=== PATIENT | female | born 1955 | race Caucasian/White ===

== ENCOUNTER 2016-10-23 01:55 | Emergency (ER) | payer MEDICAID ==
[~2016-10-23] VITALS: Ht 175.3 cm; Wt 90.7 kg
[2016-10-23 04:57] LABS: Basophils # (auto) 0.1 uL; Basophils % (auto) 0.7 % (0.0-2.0); Eosinophils # (auto) 0.2 uL; Eosinophils % (auto) 1.5 % (0.0-7.0); Hematocrit 41.5 % (36.0-46.0); Hemoglobin 13.7 g/dL (12.2-16.2); Lymphocytes # (auto) 3.3 uL; Lymphocytes % (auto) 30.9 % (10.0-50.0); Mean Corpuscular Hemoglobin 29.1 pg (28.0-32.0); Mean Corpuscular Volume 88.2 fL (80.0-100.0); Mean Platelet Volume 8.2 fL (7.4-10.4); Monocytes # (auto) 1.1 uL; Monocytes % (auto) 10.7 % (0.0-12.0); Neutrophils % (auto) 56.2 % (37.0-80.0); Platelet Count (auto) 513 10^3/uL (140-450); White Blood Cell 10.8 10^3/uL (4.4-10.8)
[2016-10-23 05:17] LABS: BUN/Creatinine Ratio 22.6; Bilirubin, Total 0.4 mg/dL (0.2-1.0); Calcium 9.5 mg/dL (8.5-10.1); Potassium 3.6 mmol/L (3.5-5.1); Uric Acid 8.9 mg/dL (2.6-6.0)
[2016-10-23 07:19] VITALS: BP 103/64
== END 2016-10-23 07:41 | disposition home or self-care (01) ==
LOC: ER 01:55
DX: M23.91 Unspecified internal derangement of right knee (principal); F17.210 Nicotine dependence, cigarettes, uncomplicated; F12.10 Cannabis abuse, uncomplicated; I10 Essential (primary) hypertension; Z88.0 Allergy status to penicillin
CPT/HCPCS: 36415; 73562; 80053; 84550; 85025; 85379; 93971

== ENCOUNTER 2017-07-03 15:22 | Inpatient (IN) | payer MEDICAID ==
[~2017-07-03] VITALS: Ht 172.7 cm; Wt 99.8 kg
[2017-07-03 15:59] LABS: Basophils # (auto) 0.1 uL; Basophils % (auto) 1.4 % (0.0-2.0); Eosinophils # (auto) 0.1 uL; Hemoglobin 12.8 g/dL (12.2-16.2); Lymphocytes # (auto) 1.3 uL; Mean Corpuscular Hgb Conc. 32.7 g/dL (32.0-36.0)
[2017-07-03 16:01] LABS: Lymphocytes % (auto) 13.3 % (10.0-50.0); Mean Corpuscular Hemoglobin 28.9 pg (28.0-32.0); Mean Corpuscular Volume 88.3 fL (80.0-100.0); Monocytes % (auto) 10.3 % (0.0-12.0); Neutrophils # (auto) 7.5 uL; Nucleated Red Blood Cells % 0.1 %; Platelet Count (auto) 461 10^3/uL (140-450); Red Blood Cells 4.42 10^6/uL (4.0-5.20); Red Cell Distribution Width 14.2 % (11.8-14.3); White Blood Cell 10.1 10^3/uL (4.4-10.8)
[2017-07-03 16:15] LABS: Albumin 3.5 g/dL (3.4-5.0); Calcium 9.5 mg/dL (8.5-10.1); Potassium 3.8 mmol/L (3.5-5.1)
[2017-07-03 16:18] LABS: BUN/Creatinine Ratio 16.3
[2017-07-03 16:20] LABS: Bilirubin, Total 0.4 mg/dL (0.2-1.0); Total Protein 7.3 g/dL (6.4-8.2)
[2017-07-03] MEDS ORDERED: ENOXAPARIN SOD 100 MG/1 ML SYRINGE SC ONE (17:15)
[2017-07-03] MEDS ORDERED: diphenhdrAMINE HCL 50 MG/1 ML VL IV ONE (20:00)
[2017-07-03] MEDS ORDERED: LORazepam 2MG/ML-1ML VIAL IV ONE (20:00)
[2017-07-03 21:54] LABS: Urine Bacteria FEW /hpf (None Seen); Urine Blood Negative /uL (Negative); Urine Hyaline Cast FEW /lpf (0 - 2); Urine Specific Gravity 1.013 (1.001-1.035); Urine WBC 24 /hpf (0 - 5); Urine WBC Clumps PRESENT /hpf (None Seen)
[2017-07-03 22:23] LABS: Alcohol, Urine < 3.0 mg/dL (0-5); Amphetamine Screen, Urine POSITIVE (NEGATIVE); Barbiturate Scree,Urine NEGATIVE (NEGATIVE); Benzodiazephine Screen, Urine NEGATIVE (NEGATIVE); Cannabinoid Screen, Urine POSITIVE (NEGATIVE); Opiate Scree,Urine NEGATIVE (NEGATIVE); Phencyclidine Screen, Urine NEGATIVE (NEGATIVE)
[2017-07-03 22:30] LABS: Cocaine Screen, Urine NEGATIVE (NEGATIVE)
[2017-07-03] MEDS: SODIUM CHLORIDE 0.9% 1,000 ML IV SCH (23:29)
[2017-07-03] MEDS ORDERED: DOCUSATE SOD 100 MG CAP PO PRN (23:30)
[2017-07-03] MEDS ORDERED: NITROGLYCERIN 0.4 MG SL TAB SL PRN (23:30)
[2017-07-03] MEDS ORDERED: TEMAZEPAM 15 MG CAP PO PRN (23:30)
[2017-07-03] MEDS ORDERED: MORPHINE SULFATE 4 MG/ML SYR/VIAL IV PRN ×2 (23:30)
[2017-07-03] MEDS ORDERED: DEXTROSE (50%) 50ML SYRG IV PRN (23:30)
[2017-07-03] MEDS ORDERED: ONDANSETRON HCL 4 MG/2 ML VIAL IV PRN (23:30)
[2017-07-03] MEDS ORDERED: HYDR200T36 PO (23:35)
[2017-07-03] MEDS ORDERED: BUSP30TA11 PO (23:35)
[2017-07-03] MEDS ORDERED: HCTZ25T PO (23:35)
[2017-07-03] MEDS ORDERED: SERT-160 PO (23:35)
[2017-07-03] MEDS ORDERED: FUR20T PO (23:35)
[2017-07-04 00:31] VITALS: BP 108/76
[2017-07-04 05:00] VITALS: BP 99/66
[2017-07-04] MEDS: InsuLIN REG 1unit/0.01ml Soln (100units/ml) SC SCH ×2 (07:00→11:30)
[2017-07-04] MEDS: ACCU-CHEK COMFORT CURVE STRIP VI SCH ×2 (07:00→12:08)
[2017-07-04] MEDS ORDERED: PNEUMOCOCCAL VACC POLYS 25 MCG/0.5 ML VIAL IM ONE (07:45)
[2017-07-04] MEDS ORDERED: INFLUENZA QUAD 2017-2018 0.5 ML SYRG IM ONE (07:45)
[2017-07-04 08:00] VITALS: BP 122/83
[2017-07-04 08:33] LABS: Basophils # (auto) 0.1 uL; Basophils % (auto) 1.3 % (0.0-2.0); Eosinophils # (auto) 0.2 uL; Eosinophils % (auto) 1.9 % (0.0-7.0); Hemoglobin 12.2 g/dL (12.2-16.2); Lymphocytes % (auto) 21.7 % (10.0-50.0); Mean Corpuscular Hemoglobin 29.3 pg (28.0-32.0); Mean Corpuscular Volume 88.7 fL (80.0-100.0); Monocytes # (auto) 1.1 uL; Monocytes % (auto) 11.9 % (0.0-12.0); Neutrophils # (auto) 5.8 uL; Neutrophils % (auto) 63.2 % (37.0-80.0); Platelet Count (auto) 439 10^3/uL (140-450); Red Blood Cells 4.17 10^6/uL (4.0-5.20); Red Cell Distribution Width 13.9 % (11.8-14.3); White Blood Cell 9.2 10^3/uL (4.4-10.8)
[2017-07-04 08:38] LABS: Albumin 3.3 g/dL (3.4-5.0); Calcium 9.4 mg/dL (8.5-10.1); Potassium 3.5 mmol/L (3.5-5.1)
[2017-07-04 08:40] LABS: BUN/Creatinine Ratio 18.3
[2017-07-04 08:41] LABS: Bilirubin, Total 0.3 mg/dL (0.2-1.0); Total Protein 6.7 g/dL (6.4-8.2)
[2017-07-04 08:49] VITALS: BP 122/83
[2017-07-04] MEDS ORDERED: ENOXAPARIN SOD 40 MG/0.4 ML SYRINGE SC SCH (10:00)
[2017-07-04] MEDS ORDERED: SERTRALINE HCL 50 MG TAB PO SCH (10:00)
[2017-07-04] MEDS ORDERED: HYDROXYCHLOROQUINE SULFATE 200 MG TAB PO SCH (10:00)
[2017-07-04] MEDS ORDERED: FUROSEMIDE 20 MG TAB PO SCH (10:00)
[2017-07-04] MEDS ORDERED: ENOXAPARIN SOD 30 MG/0.3 ML SYRINGE SC SCH (10:00)
[2017-07-04] MEDS ORDERED: busPIRone HCL 10 MG TAB PO SCH (10:00)
[2017-07-04] MEDS ORDERED: HCTZ 25 MG TAB PO SCH (10:00)
[2017-07-04] MEDS ORDERED: TIZA4TAB9 PO (12:57)
[2017-07-04 13:06] VITALS: BP 122/83
[2017-07-04 13:14] VITALS: BP 92/60
[2017-07-04] MEDS: SODIUM CHLORIDE 0.9% 1,000 ML IV SCH (16:09)
== END 2017-07-04 17:00 | disposition home or self-care (01) | DRG 351 ==
LOC: EDUNIT# 15:22 → ER 15:22 → TELE 15:23 → TELE-WESTW 07-04 00:23
PROVIDERS: ADMIT Emergency Medicine; ATTEND Internal Medicine
DX: M79.604 Pain in right leg (principal); I10 Essential (primary) hypertension; E11.9 Type 2 diabetes mellitus without complications; F17.210 Nicotine dependence, cigarettes, uncomplicated; R00.0 Tachycardia, unspecified; Z85.830 Personal history of malignant neoplasm of bone; Z80.3 Family history of malignant neoplasm of breast; Z81.8 Family history of other mental and behavioral disorders; Z88.0 Allergy status to penicillin; Z23 Encounter for immunization
CPT/HCPCS: 36415; 51702; 70450; 80053; 80307; 81001; 82962; 85025; 85379; 93971; 96372; 96374; 96375

== ENCOUNTER 2017-07-20 16:02 | Emergency (ER) | payer MEDICAID ==
[~2017-07-20 16:02] MED LIST: BUSP30TA11 PO; FUR20T PO; HCTZ25T PO; HYDR200T36 PO; SERT-160 PO; TIZA4TAB9 PO
[2017-07-20 16:18] VITALS: BP 150/87
== END 2017-07-20 18:03 | disposition left against medical advice (07) ==
LOC: EDBD 16:02 → ER 16:02
DX: M25.561 Pain in right knee (principal); Z53.21 Procedure and treatment not carried out due to patient leaving prior to being seen by health care provider